=== PATIENT | male | born 1960 | race Caucasian/White ===

== ENCOUNTER 2021-01-19 10:55 | Inpatient (IN) | payer MEDICAID ==
[~2021-01-19] VITALS: Ht 177.8 cm; Wt 79.5 kg
--- NOTE | 2021-01-19 11:00 | NUR ---
THIS IS A 60 YO M TRANSFER FROM [facility] W/ C/O SYMPTOMATIC BRADYCARDIA. PER EMS AT 0600AM PT WAS FOUND BY NEIGHBOR, DIAPHORETIC, ALTERED AND W/ C/O CP. EMS REPORTS HR IN 40'S AND HYPOTENSION. PT GIVEN 1MG ATROPINE, 2L NS BOLUS AT [facility]. EMS REPORTS UPON THEIR ARRIVAL TO FACILITY TO TRANSFER PT WAS EXPERIENCING SAME SYMPTOMS. GIVEN 2ND DOSE OF 1MG ATROPINE. PT ARRIVES IN NSR HR 70'S. PT REPORTS CP AND DIZZINESS RESOLVED. PT HYPERTENSIVE, OTHER VS WDL. DR.VAN BAJWA AT BEDSIDE. JAROD BELTRÁN AT BEDSIDE FOR EKG.
[2021-01-19] MEDS ORDERED: LORazepam 1MG TABLET ONE (11:02)
[2021-01-19] MEDS ORDERED: LORazepam 1MG TABLET PO ONE (11:30)
[2021-01-19] MEDS ORDERED: SODIUM CHLORIDE FLUSH 10ML SYR IVF ONE (11:30)
[2021-01-19 11:34] LABS: BASOPHILS % (AUTO) 1 % (0-1); EOSINOPHILS % (AUTO) 0 % (1-7); LYMPHOCYTES % (AUTO) 5 % (22-44); MEAN CORPUSCULAR HEMOGLOBIN 30.6 pg (27.5-34.5); MEAN CORPUSCULAR HGB CONC 33.6 g/dL (33.2-36.2); MONOCYTES % (AUTO) 2 % (2-9); NEUTROPHILS % (AUTO) 92 % (42-75); PLATELET COUNT 262 x10^3/uL (130-400); RED BLOOD COUNT 5.09 x10^6/uL (4.38-5.82); RED CELL DISTRIBUTION WIDTH 13.5 % (9.4-14.8)
--- NOTE | 2021-01-19 11:37 | NUR ---
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
--- NOTE | 2021-01-19 12:30 | NUR ---
AND [employer] STUDENTS AT BEDSIDE.
--- NOTE | 2021-01-19 13:20 | NUR ---
PT SLEEPING ON GURNEY W/ CALL LIGHT IN REACH AND SIDE RAILS UPX2. RESP EVEN AND UNLABORED, NAVJOT.
--- NOTE | 2021-01-19 13:27 | NUR ---
REPORT TO RUBEN ESTEVEZ.
[2021-01-19] MEDS ORDERED: ACETAMINOPHEN 325 MG TABLET PO PRN (13:30)
[2021-01-19] MEDS ORDERED: ONDANSETRON 2MG/ML, 2ML IVPush PRN (13:30)
[2021-01-19] MEDS ORDERED: POLYETHYLENE GLYCOL 17 GM PACKET PO PRN (13:30)
[2021-01-19] MEDS ORDERED: TEMAZEPAM 15 MG CAPSULE PO PRN (13:30)
--- NOTE | 2021-01-19 13:32 | NUR ---
PT RESTING COMFORTABLY IN BED. NO COMPLAINTS AT THIS TIME.
[2021-01-19 13:45] LABS: ANION GAP 6 mmol/L (5-15); CHLORIDE 113 mmol/L (98-107); CREATININE 0.87 mg/dL (0.7-1.3)
[2021-01-19 13:49] LABS: TROPONIN I < 0.015 ng/mL (0.000-0.045)
--- NOTE | 2021-01-19 13:56 | NUR ---
PT TRANSFERRED FROM TR04 TO ROOM 29. PT ATTACHED TO VS AND CARDIAC MONITORS. VSS AT THIS TIME. REPORT FROM ZENAIDA MIRANDA, AND ASSUMING CARE OF PT AT THIS TIME.
--- NOTE | 2021-01-19 14:11 | NUR ---
PT RESTING COMFORTABLY IN RNEY WITH NADN. PT ATTACHED TO ALL VS AND CARDIAC MONITORS. VSS AND UPDATED IN EMR. PT REQUESTING PAIN MEDICATIONS AT THIS TIME.
--- NOTE | 2021-01-19 14:25 | NUR ---
REPORT FROM ZARI ESTEVEZ, ASSUME CARE OF PT AT THIS TIME. PT MEDICATED WITH ULTRAM PER ADMIT ORDER FOR L WRIST/HAND PAIN. CALL LIGHT WITHIN REACH.
[2021-01-19 14:58] LABS: TROPONIN I < 0.015 ng/mL (0.000-0.045)
--- NOTE | 2021-01-19 16:20 | NUR ---
PT STATES PAIN DOWN FOLLOWING ULTRAM. PT WITH MULTIPLE QUESTIONS-QUESTIONS ANSWERED, PT UPDATED ON POC. CALL LIGHT WITHIN REACH.
[2021-01-19 18:01] VITALS: BP 172/116
[2021-01-19 19:08] VITALS: BP 187/100
[2021-01-19] MEDS ORDERED: LORazepam 0.5MG TABLET PO PRN (19:30)
[2021-01-19 19:45] LABS: TROPONIN I < 0.015 ng/mL (0.000-0.045)
[2021-01-19 19:52] VITALS: BP 161/90
[2021-01-19] MEDS: LORazepam 1MG TABLET PO PRN (19:55)
[2021-01-19] MEDS: KETOROLAC 30 MG/1 ML IVPush SCH (19:56)
[2021-01-19] MEDS: GABAPENTIN 300 MG CAPSULE PO SCH (20:07)
[2021-01-20 01:57] LABS: TROPONIN I < 0.015 ng/mL (0.000-0.045)
[2021-01-20] MEDS: KETOROLAC 30 MG/1 ML IVPush SCH ×3 (02:05→14:12)
[2021-01-20] MEDS: LORazepam 1MG TABLET PO PRN ×2 (02:05→10:53)
[2021-01-20 02:09] VITALS: BP 176/99
[2021-01-20 06:13] LABS: BASOPHILS % (AUTO) 1 % (0-1); EOSINOPHILS % (AUTO) 0 % (1-7); LYMPHOCYTES % (AUTO) 30 % (22-44); MEAN CORPUSCULAR HEMOGLOBIN 30.8 pg (27.5-34.5); MEAN CORPUSCULAR HGB CONC 33.7 g/dL (33.2-36.2); MONOCYTES % (AUTO) 8 % (2-9); NEUTROPHILS % (AUTO) 61 % (42-75); PLATELET COUNT 253 x10^3/uL (130-400); RED BLOOD COUNT 4.66 x10^6/uL (4.38-5.82); RED CELL DISTRIBUTION WIDTH 13.8 % (9.4-14.8)
[2021-01-20 06:22] LABS: CHOL/HDL RATIO 3.4; LDL/HDL RATIO 1.9 (0.5-3.0)
[2021-01-20] MEDS ORDERED: CAPSAICIN CRM 0.075%, 60GM TP PRN (09:00)
[2021-01-20] MEDS ORDERED: SENNA/DOCUSATE TABLET PO SCH (09:00)
[2021-01-20] MEDS ORDERED: REGADENOSON 0.4 MG/5 ML SYRINGE ONE (09:11)
[2021-01-20 10:38] VITALS: BP 179/108
[2021-01-20] MEDS: GABAPENTIN 300 MG CAPSULE PO SCH ×2 (10:44→17:42)
[2021-01-20 14:13] VITALS: BP 181/104
[2021-01-20] MEDS ORDERED: HYDR50TA99 PO (18:44)
[2021-01-20] MEDS ORDERED: GABA300C PO (18:44)
== END 2021-01-20 19:13 | disposition home or self-care (01) | DRG 201 ==
LOC: ED 12:50 → 5SO 13:00 → SUATTDRO 13:25
PROVIDERS: ADMIT Family Medicine; ATTEND Hospitalist
DX: R00.1 Bradycardia, unspecified (principal); F12.90 Cannabis use, unspecified, uncomplicated; R55 Syncope and collapse; F41.9 Anxiety disorder, unspecified; I10 Essential (primary) hypertension; R07.9 Chest pain, unspecified; G62.9 Polyneuropathy, unspecified; Z90.89 Acquired absence of other organs; Z80.41 Family history of malignant neoplasm of ovary; Z87.891 Personal history of nicotine dependence
CPT/HCPCS: 36415; 71045; 78452; 80048; 80061; 82040; 83735; 84443; 84484; 85025; 93005; 93017; 99285; G0378; J1885; J2785; A9502